=== PATIENT | female | born 1960 | race Caucasian/White ===

== ENCOUNTER → 2017-12-15 | Outpatient (REF) ==
[~2017-12-15] MED LIST: CHOL100059 PO; FLUT16SP19 NS; LORA-788 PO; OMEG-96 PO; PRED-1 PO; ROPI0.2528 PO; TRAM-420 PO
--- NOTE | 2017-12-15 17:40 | RADIOLOGY IMAGING REPORT ---
FACILITY: [facility] - [place] PATIENT NAME: Meagan Mark : 1960 MR: [id number] V: [id number] EXAM DATE: ORDERING PHYSICIAN: GAGAN DANGELO TECHNOLOGIST: Location: [facility] - [place] Patient: Meagan Mark : 1960 Visit/Account:[id number] Date of Sevice: 12/15/2017 WRIST RIGHT MIN 3 VIEW COMPARISON: None. HISTORY: Right wrist swelling and pain TECHNIQUE: 3 views of the right wrist were obtained. FINDINGS: BONES: No significant arthropathy, fracture, malalignment, or significant osseous lesion. Carpal ali gnment within normal limits. SOFT TISSUES: No appreciable soft tissue swelling. No abnormal soft tissue calcifications. OTHER: Negative. IMPRESSION: Unremarkable right wrist. No specific findings to account for pain. Report Dictated By: Adria Muniz at 12/15/2017 5:35 PM Report E-Signed By: Adria Muniz at 12/15/2017 5:36 PM WSN:[id number]
== END ==
LOC: RAD 16:00
PROVIDERS: ATTEND Nurse Practitioner
DX: M25.532 Pain in left wrist (principal); M25.432 Effusion, left wrist

== ENCOUNTER → 2018-10-05 | Outpatient (CLI) | payer BC ==
[~2018-10-05] MED LIST changes: +ALLO-119 PO; +AMLO-127 PO; +LEVO137T23 PO; +LOSA100T75 PO; +LOSA50TA80 PO; +LOVAZA1PT GT; +METO50TA19 PO; +NAPR500T31 PO; -ROPI0.2528 PO; +ROPI0.2530 PO
== END ==
LOC: LAB 11:02
PROVIDERS: ATTEND Emergency Medicine
DX: G25.81 Restless legs syndrome (principal); Q61.3 Polycystic kidney, unspecified; A04.8 Other specified bacterial intestinal infections
CPT/HCPCS: 36415; 81001; 82306; 82607; 83540; 83550; 84550; 87338

== ENCOUNTER → 2018-10-11 | Outpatient (CLI) | payer BC ==
--- NOTE | 2018-10-11 10:29 | RADIOLOGY IMAGING REPORT ---
FACILITY: [facility] PATIENT NAME: Meagan Mark : 1960 MR: [id number] V: [id number] EXAM DATE: ORDERING PHYSICIAN: GUS GUEVARA TECHNOLOGIST: Location: [facility] - [place] Patient: Meagan Mark : 1960 Visit/Account:[id number] Date of Sevice: 10/11/2018 KIDNEYS EXAMINATION: Renal ultrasound. History: Polycystic kidney disease COMPARISON STUDIES: FINDINGS: Kidneys: Right kidney- 12.8 x 6 x 6.5 cm. There are numerous cysts in the right kidney the three largest tu ure 4.2 cm, 2.9 cm and 3 cm in diameter. Left kidney- 12.6 x 6 x 6.3 cm. There are numerous cysts in the left kidney. The three largest tu ure 7.2, 3.8 and 3 cm Uniform and symmetric blood flow in each kidney by Doppler ultrasound. Hydronephrosis: none Resistive index on the right 0.66 on the left 0.67 Bladder: Urinary bladder prevoid volume measured 506 mL. The post void residual 13 mL. Bilateral ur eteral jets are present. Abdominal aorta and IVC: Aorta and IVC are patent by Doppler ultrasound. IMPRESSION: Numerous large cysts seen throughout both kidneys consistent with the history of polycystic kidney di sease Report Dictated By: Erendira Mcdonald MD at 10/11/2018 10:10 AM Report E-Signed By: Erendira Mcdonald MD at 10/11/2018 10:25 AM WSN:[id number]
== END ==
LOC: US 02:05
PROVIDERS: ATTEND Emergency Medicine
DX: Q61.3 Polycystic kidney, unspecified (principal)
CPT/HCPCS: 76705

== ENCOUNTER → 2018-10-18 | Outpatient (CLI) | payer BC ==
[~2018-10-18] MED LIST changes: +METO100T20 PO
--- NOTE | 2018-10-18 14:20 | RADIOLOGY IMAGING REPORT ---
FACILITY: [facility] PATIENT NAME: Meagan Mark : 1960 MR: [id number] V: [id number] EXAM DATE: ORDERING PHYSICIAN: GUS GUEVARA TECHNOLOGIST: Location: Patient: Meagan Mark : 1960 Visit/Account:[id number] Date of Sevice: 10/18/2018 EXAMINATION: Brain MR angiogram HISTORY: Polycystic kidney disease COMPARISON: None. TECHNIQUE: 8D-skjh-du-flight angiography was performed through the brain with 3D reformations. FINDINGS: Internal carotids: Normal. Anterior/Posterior communicating arteries: Normal. Anterior cerebral arteries: Azygos anterior cerebral artery variant noted. 2 mm hyperintense signal n oted just to the right of the proximal A2 segment Middle cerebral arteries: Normal. Posterior cerebral arteries: Normal. Vertebrobasilar: Normal. PICA / AICA / SCA / DOORSHAKER: Normal. Non-angiographic Findings: None significant. IMPRESSION: 1. 2 mm focus of increased signal just to the right of the proximal A2 segment just distal to the ant erior communicating artery which may represent a pulsation related artifact. This could alternatively represent a normal blood vessel emanating off the proximal A1 segment. A 2 mm aneurysm in this area cannot be entirely excluded. A repeat brain MR angiogram may be warranted to document the reproducibility of this finding as there is a chance this could be artifact. Alternatively a CT angiogram could be utilized to confirm or exclude an aneurysm in this area if the patient's renal function can tolerate an IV contrast load. 2. Otherwise normal brain MR angiogram. Report Dictated By: Pierce Alanis MD at 10/18/2018 2:06 PM Report E-Signed By: Pierce Alanis MD at 10/18/2018 2:16 PM WSN:[id number]
== END ==
LOC: MRI 02:14
PROVIDERS: ATTEND Emergency Medicine
DX: Q61.3 Polycystic kidney, unspecified (principal)
CPT/HCPCS: 70544

== ENCOUNTER → 2018-10-19 | Outpatient (CLI) | payer BC | LOC: LAB 09:33 | PROVIDERS: ATTEND Emergency Medicine | DX: E78.5 Hyperlipidemia, unspecified (principal); R94.5 Abnormal results of liver function studies; E78.00 Pure hypercholesterolemia, unspecified | CPT/HCPCS: 36415; 82040; 82247; 82248; 82465; 83036; 83695; 83718; 84075; 84155; 84450; 84460; 84478; 86140; 86706; 86707; 86803; 87340; 87350 ==

== ENCOUNTER → 2018-11-01 | Outpatient (CLI) | payer BC ==
[~2018-11-01] MED LIST changes: +METO200T12 PO; +ROSU10TA PO
--- NOTE | 2018-11-01 13:14 | RADIOLOGY IMAGING REPORT ---
FACILITY: [facility] - [place], [place] PATIENT NAME: Meagan Mark : 1960 MR: [id number] V: [id number] EXAM DATE: ORDERING PHYSICIAN: GUS GUEVARA TECHNOLOGIST: Location: [facility] - [place] Patient: Meagan Mark : 1960 Visit/Account:[id number] Date of Sevice: 11/01/2018 MRA HEAD W/O CONTRAST HISTORY: Questionable aneurysm COMPARISON: 10/18/2018 TECHNIQUE: Axial 3D time of flight (TOF) images were obtained through the [place] with coron al and sagittal reformatted images obtained from the initial data. FINDINGS: Right carotid : Negative Left carotid: Negative Anterior communicating artery: Patent Posterior communicating arteries: Patent Anterior cerebral arteries: Patent. The right-sided A2 segment of the anterior cerebral artery is un remarkable. There is no evidence of aneurysm in this area. It appears the findings on the preceding study represent a normal vessel. Middle cerebral arteries: Patent Right vertebral: Normal Left vertebral: Normal Basilar artery: Normal PICA / AICA / SCA / [employer] SECURITY: Negative IMPRESSION: Normal [place] Report Dictated By: Pradeep Clifton at 11/01/2018 12:52 PM Report E-Signed By: Pradeep Clifton at 11/01/2018 12:57 PM WSN:[id number]
--- NOTE | 2018-11-02 17:24 | RADIOLOGY IMAGING REPORT ---
FACILITY: [facility] - [place] PATIENT NAME: ALESIA CALLES : [id number] MR: [id number] V: [id number] EXAM DATE: [id number] ORDERING PHYSICIAN: GUS GUEVARA TECHNOLOGIST: Daya Sánchez PROCEDURE:BILATERAL DIGITAL SCREENING MAMMOGRAM WITH CAD ASSISTED INTERPRETATION & 3D TOMOSYNTHESIS COMPARISON:Prior mammograms dated 05/20/16, 01/11/14, 12/25/13, 12/05/13 INDICATIONS:screening FINDINGS: The breasts are almost entirely fatty. The parenchymal pattern has remained stable when allowing for difference in mammographic technique & patient positioning. There is a biopsy clip in the 6 o'clock position of the Right breast. DIAGNOSTIC CATEGORY 2--BENIGN FINDING. RECOMMENDATIONS: ROUTINE MAMMOGRAM AND CLINICAL EVALUATION. IMPRESSION: BIRADS 2: Benign finding. No significant abnormality is seen. Dictated by: Erendira Mcdonald M.D. on 11/01/2018 at 17:10 Transcribed by: SATISH on 11/02/2018 at 9:55 Approved by: Erendira Mcdonald M.D. on 11/02/2018 at 17:23 [facility]
== END ==
LOC: MAMO 01:45
PROVIDERS: ATTEND Emergency Medicine
DX: Z12.31 Encounter for screening mammogram for malignant neoplasm of breast (principal); I67.1 Cerebral aneurysm, nonruptured
CPT/HCPCS: 70544; 77063; 77067

== ENCOUNTER → 2018-12-20 | Outpatient (CLI) | payer BC ==
--- NOTE | 2018-12-20 11:04 | RADIOLOGY IMAGING REPORT ---
FACILITY: [facility] - [place] PATIENT NAME: Meagan Mark : 1960 MR: [id number] V: [id number] EXAM DATE: ORDERING PHYSICIAN: GUS GUEVARA TECHNOLOGIST: Location: [facility] - [place] Patient: Meagan Mark : 1960 Visit/Account:[id number] Date of Sevice: 12/20/2018 CAROTID HISTORY: Hypertension and hyperlipidemia COMPARISON: None. FINDINGS: Grayscale, duplex and color Doppler interrogation of the extracranial carotid and vertebral arteries was performed bilateral. On the right, peak systolic velocities within the common and internal carotid arteries are 76 and 79 cm/sec respectively. No significant plaque formation is identified. Doppler waveforms are within no rmal limits.. Antegrade flow within the common, internal and external carotid arteries as well as ve rtebral artery. ICA/CCA ratio 1.0. On the left, peak systolic velocities within the common and internal carotid arteries are 68 and 80 c m/sec respectively. No plaque formation is identified. Doppler waveforms are within normal limits.. Antegrade flow within the common, internal and external carotid arteries as well as vertebral arter y. ICA/CCA ratio 1.2 Incidentally noted is a heterogeneously appearing thyroid gland IMPRESSION: Normal carotid ultrasound Velocity criteria are extrapolated from diameter data as defined by the Society of Radiologists in Ul trasound Consensus Conference Radiology 2003; 229;340-346 Report Dictated By: Clyde Guaman at 12/20/2018 10:51 AM Report E-Signed By: Clyde Guaman at 12/20/2018 10:58 AM WSN:[id number]
== END ==
LOC: US 12-06 01:18
PROVIDERS: ATTEND Emergency Medicine
DX: E78.5 Hyperlipidemia, unspecified (principal); I10 Essential (primary) hypertension
CPT/HCPCS: 93880